=== PATIENT | male | born 1980 | race Caucasian/White ===

== ENCOUNTER 2018-03-25 10:13 | Emergency (ER) | payer OTHER ==
[~2018-03-25] VITALS: Ht 185.4 cm; Wt 122.5 kg
[~2018-03-25 10:13] MED LIST: ACYCLOVIR 800800 MG PO; BACTRIM DS TAB1 EACH PO; BENADRYL25 MG PO; DARVOCET-N 1001 EACH PO; KEFLEX500 MG PO; MOBIC15 MG PO; NOHOMEMEDICATIONS; NORCO 5-325 TA1 EACH PO; PERCOCET 5-3251 EACH PO; PREDNISONE 20 M20 MG PO; ROBAXIN 750 MG750 M1 PO; ZANTAC 150MG T150 MG PO
[2018-03-25 11:10] LABS: ABSOLUTE BASOPHILS 0.1 thou/uL (0.0-0.2); ABSOLUTE EOSINOPHILS 0.3 thou/uL (0.0-0.7); ABSOLUTE MONOCYTES 0.5 thou/uL (0.0-1.2); ABSOLUTE NEUTROPHILS 4.9 thou/uL (1.6-8.1); BASOPHILS 1.4 %; EOSINOPHILS 4.1 %; HEMATOCRIT 46.3 % (42.0-52.0); HEMOGLOBIN 15.6 gm/dL (14.0-18.0); LYMPHOCYTES 24.9 %; MCH 28.5 pg (26.0-34.0); MCHC 33.6 g/dL (28.0-37.0); MCV 84.7 fL (80.0-100.0); MONOCYTES 6.9 %; MPV 9.4 fl. (7.2-11.1); NUCLEATED RBCS 0 /100WBC; PLATELET COUNT* 199 thou/uL (150-400); POLYS 62.7 %; RBC 5.47 mil/uL (4.50-6.00); RDW-CV 14.2 % (10.5-14.5); WBC 7.8 thou/uL (4.0-11.0)
[2018-03-25 11:21] LABS: ANION GAP 6 mmol/L (7-16); BUN 19 mg/dL (7-18); CALCIUM 8.9 mg/dL (8.5-10.1); CHLORIDE 104 mmol/L (98-107); CO2 28 mmol/L (21-32); CREATININE 0.7 mg/dL (0.6-1.3); GLUCOSE 97 mg/dL (70-99); POTASSIUM 3.9 mmol/L (3.5-5.1); SODIUM 138 mmol/L (136-145)
[2018-03-25 11:36] LABS: ALBUMIN 3.7 g/dL (3.4-5.0); ALKALINE PHOSPHATASE 85 U/L (46-116); LIPASE 57 U/L (73-393); MAGNESIUM 2.1 mg/dL (1.8-2.4); SGOT 31 U/L (15-37); SGPT 44 U/L (30-65); TOTAL BILIRUBIN 0.6 mg/dL (<0.1-1.0); TOTAL PROTEIN 7.4 g/dL (6.4-8.2); TROPONIN-I LEVEL <0.06 ng/mL (<0.06)
[2018-03-25 13:07] VITALS: BP 160/106
--- NOTE | 2018-03-26 10:30 | EKG ---
[place] [address] ELECTROCARDIOGRAM REPORT Name: ANA CABALLERO [id number] Admission: 03/25/18 Attend Phys: Discharge: 03/25/18 Date of : 80 Report #: [id number] THIS REPORT FOR: //name// [facility] ED Test Date: 2018-03-25 Test Time: 11:11:45 Pat Name: ANA CABALLERO Department: Room: Gender: M Online Publisher: LUCIO : 1980 Requested By: Mary Etienne Order Number: [id number] MD: Alexander Spence Measurements Intervals [place] Rate: 56 P: 19 [place]: 147 QRS: -20 QRSD: 117 T: 34 QT: 458 QTc: 443 Interpretive Statements Sinus rhythm Incomplete right bundle branch block ST elev, probable normal early repol pattern No previous ECG available for comparison Electronically Signed On 03-26-2018 10:30:20 CDT by Alexander Spence [email or web address] <ELECTRONICALLY SIGNED> By: Alexander Spence MD, LOCATED WITHIN [facility] 03/26/18 1030 1111 [facility] Alexander Spence MD, FACC /EPI
== END 2018-03-25 13:08 | disposition home or self-care (01) ==
LOC: M.ERS 10:13
PROVIDERS: Physician Assistant Surgical
DX: R53.1 Weakness (principal); R42 Dizziness and giddiness; R11.0 Nausea; F17.210 Nicotine dependence, cigarettes, uncomplicated; Z91.030 Bee allergy status; Z88.5 Allergy status to narcotic agent

== ENCOUNTER 2020-11-12 18:16 | Emergency (ER) | payer OTHER ==
[~2020-11-12] VITALS: Ht 185.4 cm; Wt 151.5 kg
[~2020-11-12 18:16] MED LIST changes: +LISINOPRIL10 MG PO
[2020-11-12] MEDS ORDERED: LISINOPRIL5 MG PO ×2 (18:27→21:00)
[2020-11-12 19:11] LABS: ABSOLUTE BASOPHILS 0.1 thou/uL (0.0-0.2); ABSOLUTE EOSINOPHILS 0.3 thou/uL (0.0-0.7); ABSOLUTE LYMPHOCYTES 2.3 thou/uL (0.8-5.3); ABSOLUTE MONOCYTES 0.7 thou/uL (0.0-1.2); ABSOLUTE NEUTROPHILS 6.4 thou/uL (1.6-8.1); BASOPHILS 1.2 %; EOSINOPHILS 3.1 %; HEMATOCRIT 43.8 % (42.0-52.0); HEMOGLOBIN 14.7 gm/dL (14.0-18.0); LYMPHOCYTES 23.4 %; MCH 27.1 pg (26.0-34.0); MCHC 33.6 g/dL (28.0-37.0); MCV 80.7 fL (80.0-100.0); MONOCYTES 6.8 %; MPV 8.4 fl. (7.2-11.1); NUCLEATED RBCS 0 /100WBC; PLATELET COUNT* 226 thou/uL (150-400); POLYS 65.5 %; RBC 5.43 mil/uL (4.50-6.00); RDW-CV 14.9 % (10.5-14.5); WBC 9.7 thou/uL (4.0-11.0)
[2020-11-12 19:19] LABS: CREATININE 1.2 mg/dL (0.6-1.3); POTASSIUM 3.9 mmol/L (3.5-5.1)
[2020-11-12 19:24] LABS: ALBUMIN 3.4 g/dL (3.4-5.0); TOTAL BILIRUBIN 0.3 mg/dL (<0.1-1.0)
[2020-11-12] MEDS ORDERED: HYDROCHLOROTHIA25 M2 PO (21:00)
[2020-11-12 21:25] VITALS: BP 153/98
--- NOTE | 2020-11-13 09:41 | EKG ---
[place] [address] ELECTROCARDIOGRAM REPORT Name: ANA CABALLERO Room: [facility]#: [id number] Admission: 11/12/20 Attend Phys: Discharge: 11/12/20 Date of : 80 Date of Service: 11/12/201837 Report #: [id number] THIS REPORT FOR: //name// [facility] ED Test Date: 2020-11-12 Test Time: 18:38:24 Pat Name: ANA CABALLERO Department: Room: Gender: Titrator: ÓSCAR : 1980 Requested By: Robi Edmonds Order Number: [id number] MD: Alli Mckeon Measurements Intervals [place] Rate: 77 P: ND: QRS: -24 QRSD: 109 T: 34 QT: 392 QTc: 444 Interpretive Statements Sinus rhythm Incomplete RBBB and LAFB RSR' in V1 or V2, right VCD Compared to ECG 09/20/2020 23:07:39 RSR' in V1 or V2 persists Electronically Signed On 11-13-2020 9:41:45 [employer] by Alli Mckeon [email or web address] <ELECTRONICALLY SIGNED> By: Alli Mckeon MD, [facility] 11/13/20 0941 1838 1838 Alli Mckeon MD, [facility] /EPI
== END 2020-11-12 21:26 | disposition home or self-care (01) ==
LOC: M.ERS 18:16
PROVIDERS: Emergency Medicine Emergency Medical Services
DX: I10 Essential (primary) hypertension (principal); Z76.0 Encounter for issue of repeat prescription; R53.83 Other fatigue; F17.210 Nicotine dependence, cigarettes, uncomplicated; Z91.030 Bee allergy status; Z88.5 Allergy status to narcotic agent; Z79.899 Other long term (current) drug therapy; Z90.89 Acquired absence of other organs